=== PATIENT | male | born 1940 | race Caucasian/White ===

== ENCOUNTER 2016-11-28 09:31 | Outpatient (RCR) | payer MEDICARE ==
[~2016-11-28 09:31] MED LIST: ASPI-586 PO; ATOR10TA PO; BICA50TA4 PO; CPR500T PO; HYDR-34 PO; NF-ESOM40C PO
== END 2017-02-26 | disposition home or self-care (01) ==
LOC: ONC 09:31
PROVIDERS: ATTEND Radiology Radiation Oncology
DX: C61 Malignant neoplasm of prostate (principal)
CPT/HCPCS: 84153

== ENCOUNTER → 2017-11-28 | Outpatient (CLI) | payer MEDICARE | LOC: EDSTATUS 02-27 09:32 → ONC 09:36 | PROVIDERS: ATTEND Radiology Radiation Oncology | DX: C61 Malignant neoplasm of prostate (principal) | CPT/HCPCS: 36415; 84153 ==

== ENCOUNTER → 2018-11-28 | Outpatient (CLI) | payer MEDICARE | END | disposition still patient (30) | LOC: ONC 09:37 | PROVIDERS: ATTEND Radiology Radiation Oncology | DX: C61 Malignant neoplasm of prostate (principal) | CPT/HCPCS: 36415; 84153 ==